=== PATIENT | female | born 1980 ===

== ENCOUNTER → 2017-12-16 | Outpatient (CLI) | payer OTHER ==
[2017-12-17 14:11] LABS: HPV 16 Negative (Negative); HPV 18 Negative (Negative); HPV OTHER HR TYPES Negative (Negative)
== END ==
LOC: LAB SHORT 09:05 → LAB 09:05
PROVIDERS: Registered Nurse Community Health
DX: Z01.419 Encounter for gynecological examination (general) (routine) without abnormal findings (principal); Z12.4 Encounter for screening for malignant neoplasm of cervix; Z30.014 Encounter for initial prescription of intrauterine contraceptive device; Z30.431 Encounter for routine checking of intrauterine contraceptive device
CPT/HCPCS: 87624; G0123